=== PATIENT | female | born 1955 | race Caucasian/White ===

== ENCOUNTER 2022-02-23 09:48 | Inpatient (IN) | payer MEDICARE ==
[~2022-02-23] VITALS: Ht 165.1 cm; Wt 70.3 kg
[2022-02-23] MEDS ORDERED: NA P133E RC (11:29)
[2022-02-23] MEDS ORDERED: ACET325T53 PO (11:29)
[2022-02-23] MEDS ORDERED: MELA5TAB PO (11:29)
[2022-02-23] MEDS ORDERED: MAGN400O6 PO (11:29)
[2022-02-23] MEDS ORDERED: AMLO5TAB4 PO (11:29)
[2022-02-23] MEDS ORDERED: DIVA500T2 PO (11:29)
[2022-02-23] MEDS ORDERED: BISA10SU11 RC (11:29)
[2022-02-23] MEDS ORDERED: LISI10TA29 PO (11:29)
[2022-02-23 11:30] LABS: BASOPHILS % (AUTO) 0.7 % (0.0-2.0); EOSINOPHILS % (AUTO) 2.3 % (0.0-6.0); HEMATOCRIT 39 % (33-45); HEMOGLOBIN 12.9 g/dL (11.5-14.8); LYMPHOCYTES # (AUTO) 1.3 K/uL (0.8-4.8); LYMPHOCYTES % (AUTO) 17.9 % (20.0-44.0); MEAN CORPUSCULAR HGB CONC 33 g/dl (31.0-36.0); MEAN CORPUSCULAR VOLUME 93 fL (82-100); MONOCYTES # (AUTO) 0.8 K/uL (0.1-1.30); MONOCYTES % (AUTO) 11.2 % (2.0-12.0); NEUTROPHILS # (AUTO) 4.8 K/uL (1.8-8.9); NEUTROPHILS % (AUTO) 67.9 % (43.0-81.0); PLATELET COUNT (AUTO) 226 K/uL (150-450); RED BLOOD CELL COUNT(AUTO) 4.22 MIL/uL (4.0-5.2)
[2022-02-23 11:38] LABS: BILIRUBIN,URINE NEGATIVE (NEGATIVE); COLOR,URINE YELLOW (YELLOW); LEUKOCYTE ESTERASE ,URINE MODERATE (NEGATIVE); NITRITE, URINE POSITIVE (NEGATIVE); PROTEIN,URINE NEGATIVE (NEGATIVE); UGLUCOSE NEGATIVE (NEGATIVE); UROBILINOGEN,URINE 0.2 EU/dL (0.2)
[2022-02-23 11:47] LABS: ALANINE AMINOTRANSFERASE 18 U/L (12-78); ALBUMIN 3.5 g/dL (3.4-5.0); ALKALINE PHOSPHATASE 69 U/L (46-116); ASPARTATE AMINOTRANSFERASE 12 U/L (15-37); BILIRUBIN,DIRECT 0.1 mg/dL (0.0-0.2); BILIRUBIN,TOTAL 0.6 mg/dL (0.2-1.0); CALCIUM, SERUM 9.3 mg/dL (8.5-10.1); CARBON DIOXIDE 28 mmol/L (21-32); CHLORIDE 102 mmol/L (98-107); CREATININE 1.6 mg/dL (0.6-1.3); GLUCOSE 85 mg/dL (74-106); SODIUM SERUM 135 mmol/L (136-145); TOTAL PROTEIN, SERUM 7.6 g/dL (6.4-8.2); UREA NITROGEN, BLOOD 40 mg/dL (7-18)
[2022-02-23 11:51] LABS: ACETAMINOPHEN 0 ug/ml (10-30); ALCOHOL, BLOOD < 3 mg/dL (0-0)
[2022-02-23 13:25] LABS: BACTERIA,URINE Many /HPF (None Seen); SQUAMOUS EPITHELIAL CELL,UR Moderate /HPF (None Seen); WBC,URINE 81-100 /HPF (0-3)
[2022-02-23] MEDS ORDERED: MAG HYDROX/AL HYDROX/SIMETH 30 ML UDC PO PRN (22:00)
[2022-02-23] MEDS ORDERED: LORAZEPAM 0.5 MG TABLET PO PRN (22:00)
[2022-02-23] MEDS ORDERED: MAGNESIUM HYDROXIDE 30 ML UDC PO PRN (22:00)
[2022-02-23] MEDS ORDERED: ACETAMINOPHEN 325 MG TABLET PO PRN (22:00)
[2022-02-23 22:14] VITALS: BP 155/90
[2022-02-23] MEDS ORDERED: BLOOD SUGAR DIAGNOSTIC 1 EACH STRIP IN ONE (22:30)
[2022-02-24 00:25] VITALS: BP 135/72
[2022-02-24] MEDS ORDERED: Z GUARD REMEDY 4 OZ OINT TP PRN (01:30)
[2022-02-24 08:00] VITALS: BP 116/66
[2022-02-24] MEDS: AMLODIPINE BESYLATE 5 MG TABLET PO SCH (08:42)
[2022-02-24] MEDS: SULFAMETH/TRIMETH 800/160 MG 1 UDTAB TABLET PO SCH ×2 (08:42→16:39)
[2022-02-24] MEDS: LISINOPRIL (10MG) 10 MG TABLET PO SCH (08:43)
[2022-02-24] MEDS: NICOTINE PATCH (14MG) 14 MG PATCH.TD24 TD SCH (08:53)
[2022-02-24] MEDS ORDERED: DIVALPROEX SODIUM 500 MG TABLET.DR PO SCH (09:00)
[2022-02-24] MEDS: Z GUARD REMEDY 4 OZ OINT TP SCH (09:08)
[2022-02-24 16:00] VITALS: BP 140/87
[2022-02-24 19:49] VITALS: BP 123/63
[2022-02-24 20:28] VITALS: BP 123/63
[2022-02-24] MEDS ORDERED: DIVALPROEX SODIUM 125 MG CAP.SPRINK PO SCH (21:00)
[2022-02-24] MEDS ORDERED: MELATONIN 3 MG TABLET PO SCH (22:00)
[2022-02-25 07:09] LABS: CALCIUM, SERUM 8.9 mg/dL (8.5-10.1); CREATININE 1.9 mg/dL (0.6-1.3); POTASSIUM 4.8 mmol/L (3.5-5.1)
[2022-02-25 07:19] LABS: BASOPHILS # (AUTO) 0.1 K/uL (0.0-0.2); EOSINOPHILS % (AUTO) 2.7 % (0.0-6.0); HEMATOCRIT 38 % (33-45); HEMOGLOBIN 12.5 g/dL (11.5-14.8); LYMPHOCYTES # (AUTO) 1.3 K/uL (0.8-4.8); LYMPHOCYTES % (AUTO) 20.9 % (20.0-44.0); MEAN CORPUSCULAR HGB CONC 33 g/dl (31.0-36.0); MEAN CORPUSCULAR VOLUME 92 fL (82-100); MONOCYTES # (AUTO) 0.8 K/uL (0.1-1.30); MONOCYTES % (AUTO) 13.6 % (2.0-12.0); NEUTROPHILS # (AUTO) 3.8 K/uL (1.8-8.9); NEUTROPHILS % (AUTO) 61.8 % (43.0-81.0); PLATELET COUNT (AUTO) 200 K/uL (150-450); RED BLOOD CELL COUNT(AUTO) 4.13 MIL/uL (4.0-5.2); WHITE BLOOD COUNT (AUTO) 6.2 K/uL (4.3-11.0)
[2022-02-25 08:00] VITALS: BP 137/67
[2022-02-25] MEDS: AMLODIPINE BESYLATE 5 MG TABLET PO SCH (09:04)
[2022-02-25] MEDS: NICOTINE PATCH (14MG) 14 MG PATCH.TD24 TD SCH ×2 (09:04→09:15)
[2022-02-25] MEDS: SULFAMETH/TRIMETH 800/160 MG 1 UDTAB TABLET PO SCH ×2 (09:04→16:37)
[2022-02-25] MEDS: OLANZAPINE 5 MG TABLET PO SCH (09:04)
[2022-02-25] MEDS: LISINOPRIL (10MG) 10 MG TABLET PO SCH (09:05)
[2022-02-25] MEDS: Z GUARD REMEDY 4 OZ OINT TP SCH (09:06)
[2022-02-25 16:00] VITALS: BP 118/76
[2022-02-25 20:23] VITALS: BP 128/78
[2022-02-25] MEDS: TEMAZEPAM 7.5 MG CAPSULE PO PRN (22:37)
[2022-02-26 08:00] VITALS: BP 134/74
[2022-02-26] MEDS: LISINOPRIL (10MG) 10 MG TABLET PO SCH (08:21)
[2022-02-26] MEDS: SULFAMETH/TRIMETH 800/160 MG 1 UDTAB TABLET PO SCH (08:21)
[2022-02-26] MEDS: OLANZAPINE 5 MG TABLET PO SCH (08:21)
[2022-02-26] MEDS: AMLODIPINE BESYLATE 5 MG TABLET PO SCH (08:22)
[2022-02-26] MEDS: Z GUARD REMEDY 4 OZ OINT TP SCH (08:22)
[2022-02-26 16:00] VITALS: BP 103/65
[2022-02-26 20:31] VITALS: BP 105/66
[2022-02-26] MEDS: NITROFURANTOIN/MONOHYDRATE MACROCRYSTALS 100 MG CAPSULE PO SCH (21:04)
[2022-02-26] MEDS: TEMAZEPAM 7.5 MG CAPSULE PO PRN (22:54)
[2022-02-27 08:00] VITALS: BP 125/66
[2022-02-27] MEDS: OLANZAPINE 5 MG TABLET PO SCH (10:10)
[2022-02-27] MEDS: AMLODIPINE BESYLATE 5 MG TABLET PO SCH (10:10)
[2022-02-27] MEDS: LISINOPRIL (10MG) 10 MG TABLET PO SCH (10:11)
[2022-02-27] MEDS: NITROFURANTOIN/MONOHYDRATE MACROCRYSTALS 100 MG CAPSULE PO SCH ×2 (10:11→21:22)
[2022-02-27] MEDS: Z GUARD REMEDY 4 OZ OINT TP SCH (10:13)
[2022-02-27] MEDS: NICOTINE PATCH (14MG) 14 MG PATCH.TD24 TD SCH (10:23)
[2022-02-27 16:00] VITALS: BP 154/89
[2022-02-27 20:00] VITALS: BP 98/60
[2022-02-28] MEDS: TEMAZEPAM 7.5 MG CAPSULE PO PRN ×2 (01:21→21:34)
[2022-02-28 08:00] VITALS: BP 106/58
[2022-02-28] MEDS: NICOTINE PATCH (14MG) 14 MG PATCH.TD24 TD SCH (08:20)
[2022-02-28] MEDS: AMLODIPINE BESYLATE 5 MG TABLET PO SCH (08:21)
[2022-02-28] MEDS: NITROFURANTOIN/MONOHYDRATE MACROCRYSTALS 100 MG CAPSULE PO SCH ×2 (08:22→21:34)
[2022-02-28] MEDS: LISINOPRIL (10MG) 10 MG TABLET PO SCH (08:22)
[2022-02-28] MEDS: Z GUARD REMEDY 4 OZ OINT TP SCH (08:44)
[2022-02-28] MEDS: OLANZAPINE 2.5 MG TABLET PO SCH (08:45)
[2022-02-28 13:26] LABS: CALCIUM, SERUM 9.4 mg/dL (8.5-10.1); CREATININE 2.2 mg/dL (0.6-1.3); POTASSIUM 4.6 mmol/L (3.5-5.1)
[2022-02-28 16:00] VITALS: BP 125/81
[2022-02-28 20:00] VITALS: BP 117/93
[2022-03-01 07:31] LABS: CALCIUM, SERUM 9.1 mg/dL (8.5-10.1); CREATININE 1.8 mg/dL (0.6-1.3); POTASSIUM 4.4 mmol/L (3.5-5.1)
[2022-03-01 08:00] VITALS: BP 132/73
[2022-03-01] MEDS: NITROFURANTOIN/MONOHYDRATE MACROCRYSTALS 100 MG CAPSULE PO SCH ×2 (08:21→21:17)
[2022-03-01] MEDS: AMLODIPINE BESYLATE 5 MG TABLET PO SCH (08:21)
[2022-03-01] MEDS: OLANZAPINE 2.5 MG TABLET PO SCH (08:21)
[2022-03-01] MEDS: LISINOPRIL (10MG) 10 MG TABLET PO SCH (08:22)
[2022-03-01] MEDS: Z GUARD REMEDY 4 OZ OINT TP SCH (08:25)
[2022-03-01] MEDS: NICOTINE PATCH (14MG) 14 MG PATCH.TD24 TD SCH (09:00)
[2022-03-01 16:00] VITALS: BP 121/75
[2022-03-01 20:00] VITALS: BP 111/76
[2022-03-01] MEDS: TEMAZEPAM 7.5 MG CAPSULE PO PRN (21:17)
[2022-03-02 08:00] VITALS: BP 124/75
[2022-03-02] MEDS: NITROFURANTOIN/MONOHYDRATE MACROCRYSTALS 100 MG CAPSULE PO SCH (08:03)
[2022-03-02] MEDS: OLANZAPINE 2.5 MG TABLET PO SCH (08:05)
[2022-03-02 08:06] VITALS: BP 124/75
[2022-03-02] MEDS: NICOTINE PATCH (14MG) 14 MG PATCH.TD24 TD SCH (08:06)
[2022-03-02] MEDS: LISINOPRIL (10MG) 10 MG TABLET PO SCH (08:06)
[2022-03-02] MEDS: AMLODIPINE BESYLATE 5 MG TABLET PO SCH (08:06)
[2022-03-02] MEDS: Z GUARD REMEDY 4 OZ OINT TP SCH (08:12)
== END 2022-03-02 14:45 | DRG 884 ==
LOC: ER 09:53 → GPS 19:59
PROVIDERS: ADMIT Nurse Practitioner Psychiatric/Mental Health; ATTEND Student in an Organized Health Care Education/Training Program
DX: R45.1 Restlessness and agitation (principal); N17.0 Acute kidney failure with tubular necrosis; N18.9 Chronic kidney disease, unspecified; N39.0 Urinary tract infection, site not specified; F32.A Depression, unspecified; G47.00 Insomnia, unspecified; Z63.4 Disappearance and death of family member; Z86.73 Personal history of transient ischemic attack (TIA), and cerebral infarction without residual deficits; Z91.19 Patient's noncompliance with other medical treatment and regimen; I12.9 Hypertensive chronic kidney disease with stage 1 through stage 4 chronic kidney disease, or unspecified chronic kidney disease
CPT/HCPCS: 36415; 76770-TC; 80048-TC; 80061-TC; 80076-TC; 80164-TC; 81001; 82962-TC; 84443-TC; 85025-TC; 87081-TC; 87086-TC; 87186-TC; 97112-TC; 97116-TC; 97530-TC; C9803; G0480

== ENCOUNTER 2023-07-17 10:24 | Emergency (ER) | payer MEDICARE, OTHER ==
[~2023-07-17] VITALS: Ht 167.6 cm; Wt 84.8 kg
[~2023-07-17 10:24] MED LIST: ACET325T53 PO; AMLO5TAB4 PO; ASPI-1169 PO; ATOR40TA PO; BISA10SU11 RC; FAMO20TA8 PO; LISI10TA29 PO; MAGN400O6 PO; MERO1PIG IV; NA P133E RC
[2023-07-17 10:28] VITALS: BP 142/84; TEMP 98; O2SAT 98
[2023-07-17] MEDS ORDERED: oxyCODONE/APAP (5/325 MG) 1 UDTAB TABLET ONE (11:14)
[2023-07-17] MEDS ORDERED: oxyCODONE/APAP (5/325 MG) 1 UDTAB TABLET PO ONE (11:30)
== END 2023-07-17 13:33 ==
LOC: ER 10:25
DX: M79.601 Pain in right arm (principal); I12.0 Hypertensive chronic kidney disease with stage 5 chronic kidney disease or end stage renal disease; N18.9 Chronic kidney disease, unspecified; Z86.73 Personal history of transient ischemic attack (TIA), and cerebral infarction without residual deficits; Z79.899 Other long term (current) drug therapy; Z79.82 Long term (current) use of aspirin

== ENCOUNTER 2023-10-30 08:04 | Inpatient (IN) | payer MEDICARE, OTHER ==
[~2023-10-30] VITALS: Ht 170.2 cm; Wt 88.9 kg
[2023-10-30 08:51] LABS: BASOPHILS % (AUTO) 0.4 % (0.0-2.0); EOSINOPHILS # (AUTO) 0.2 K/uL (0.0-0.7); EOSINOPHILS % (AUTO) 3.1 % (0.0-6.0); HEMATOCRIT 42 % (33-45); HEMOGLOBIN 13.6 g/dL (11.5-14.8); LYMPHOCYTES % (AUTO) 13.7 % (20.0-44.0); MEAN CORPUSCULAR HEMOGLOBIN 30 PG (26.0-33.0); MEAN CORPUSCULAR HGB CONC 32 g/dl (31.0-36.0); MEAN CORPUSCULAR VOLUME 93 fL (82-100); MONOCYTES # (AUTO) 0.6 K/uL (0.1-1.30); NEUTROPHILS # (AUTO) 5.3 K/uL (1.8-8.9); NEUTROPHILS % (AUTO) 73.8 % (43.0-81.0); PLATELET COUNT (AUTO) 224 K/uL (150-450); RED BLOOD CELL COUNT(AUTO) 4.56 MIL/uL (4.0-5.2); RED CELL DISTRIBUTION WIDTH 14.5 % (11.5-15.0); WHITE BLOOD COUNT (AUTO) 7.2 K/uL (4.3-11.0)
[2023-10-30 09:00] LABS: CARBON DIOXIDE 23 mmol/L (21-32); CHLORIDE 104 mmol/L (98-107); CREATININE 1.9 mg/dL (0.6-1.3); GLUCOSE 129 mg/dL (74-106); POTASSIUM 4.2 mmol/L (3.5-5.1); SODIUM SERUM 136 mmol/L (136-145); UREA NITROGEN, BLOOD 36 mg/dL (7-18)
[2023-10-30 09:07] LABS: ALANINE AMINOTRANSFERASE 24 U/L (12-78); ALBUMIN 3.4 g/dL (3.4-5.0); ALKALINE PHOSPHATASE 111 U/L (46-116); ASPARTATE AMINOTRANSFERASE 29 U/L (15-37); BILIRUBIN,DIRECT 0.1 mg/dL (0.0-0.2); BILIRUBIN,TOTAL 0.7 mg/dL (0.2-1.0)
[2023-10-30 09:14] LABS: INR 0.97 (0.91-1.10); PROTHROMBIN TIME 10.3 SECS (9.2-11.1)
[2023-10-30 09:20] LABS: CHOLESTEROL 183 mg/dL (<200); HDL CHOLESTEROL 54 mg/dL (40-60); LDL 105 mg/dL (0-99); TRIGLYCERIDES 71 mg/dL (30-150)
[2023-10-30 10:17] LABS: APPEARANCE,URINE CLOUDY (CLEAR); BILIRUBIN,URINE NEGATIVE (NEGATIVE); BLOOD, URINE TRACE-INTA Ery/uL (NEGATIVE); COLOR,URINE YELLOW (YELLOW); KETONES,URINE NEGATIVE (NEGATIVE); LEUKOCYTE ESTERASE ,URINE 3+ (NEGATIVE); NITRITE, URINE POSITIVE (NEGATIVE); PH,URINE 5.5 (5.0-8.0); PROTEIN,URINE NEGATIVE (NEGATIVE); UGLUCOSE NEGATIVE (NEGATIVE); UROBILINOGEN,URINE 0.2 EU/dL (0.2)
[2023-10-30 10:25] LABS: AMPHETAMINE, URINE NEGATIVE (NEGATIVE); BARBITURATE, URINE NEGATIVE (NEGATIVE); BENZODIAZEPINE, URINE NEGATIVE (NEGATIVE); CANNABINOID, URINE NEGATIVE (NEGATIVE); COCCAINE, URINE NEGATIVE (NEGATIVE); OPIATE, URINE NEGATIVE (NEGATIVE); PHENCYCLIDINE SCREEN,URINE NEGATIVE (NEGATIVE)
[2023-10-30] MEDS ORDERED: AMLODIPINE BESYLATE 5 MG TABLET ONE (10:29)
[2023-10-30] MEDS ORDERED: ATORVASTATIN 40 MG TABLET ONE (10:29)
[2023-10-30] MEDS ORDERED: LISINOPRIL (20MG) 20 MG TABLET ONE (10:29)
[2023-10-30] MEDS ORDERED: FAMOTIDINE (20 MG) 20 MG TABLET ONE (10:29)
[2023-10-30] MEDS ORDERED: ASPIRIN 81 MG TAB.CHEW ONE (10:30)
[2023-10-30] MEDS: ATORVASTATIN 40 MG TABLET PO SCH (10:38)
[2023-10-30] MEDS: FAMOTIDINE (20 MG) 20 MG TABLET PO SCH (10:38)
[2023-10-30 10:39] LABS: ADD URINE CULTURE YES; BACTERIA,URINE Many /HPF (None Seen); RBC,URINE 0-2 /HPF (0-2); SQUAMOUS EPITHELIAL CELL,UR Rare /HPF (None Seen); WBC,URINE 51-80 /HPF (0-3)
[2023-10-30] MEDS: AMLODIPINE BESYLATE 5 MG TABLET PO SCH (10:39)
[2023-10-30] MEDS: LISINOPRIL (10MG) 10 MG TABLET PO SCH (10:41)
[2023-10-30] MEDS ORDERED: CEFTRIAXONE 1GM BAG (ER ONLY) 1 GM/50 ML PIGGYBACK IV ONE (11:30)
[2023-10-30] MEDS ORDERED: CEFTRIAXONE 1GM BAG (ER ONLY) 50 ML IV ONE ×2 (11:35→19:22)
[2023-10-30] MEDS ORDERED: IOHEXOL-350 100 ML VIAL IV ONE (11:38)
[2023-10-30] MEDS ORDERED: CT SWABBABLE VALVE TRANS SET 1 EA INFUS.SET MC ONE (11:38)
[2023-10-30] MEDS ORDERED: IV NS 0.9% 250 ML IV ONE (11:38)
[2023-10-30] MEDS: BLOOD SUGAR DIAGNOSTIC 1 EACH STRIP IN SCH ×3 (12:15→22:00)
[2023-10-30] MEDS ORDERED: CLON1TAB12 PO (15:21)
[2023-10-30] MEDS ORDERED: ARIP20TA4 PO (15:21)
[2023-10-30] MEDS ORDERED: BUSP10TA3 PO (15:21)
[2023-10-30] MEDS ORDERED: QUET25TA PO (15:21)
[2023-10-30] MEDS ORDERED: LISI10TA29 PO (15:21)
[2023-10-30] MEDS ORDERED: AMLO5TAB4 PO (15:21)
[2023-10-30] MEDS: IV NS 0.9% 1,000 ML IV PRN (16:27)
[2023-10-30] MEDS: CEFTRIAXONE 1 G in IV D5W 50 ML IV SCH (19:25)
[2023-10-30] MEDS ORDERED: SIMVASTATIN 40 MG TABLET PO SCH (22:00)
[2023-10-30 23:25] VITALS: BP 128/82; TEMP 97.9; O2SAT 96
[2023-10-30 23:30] VITALS: BP 128/82; TEMP 97.9; O2SAT 96
[2023-10-31 04:00] VITALS: BP 145/88; TEMP 97.7; O2SAT 96
[2023-10-31] MEDS: IV NS 0.9% 1,000 ML IV PRN ×2 (04:33→19:16)
[2023-10-31] MEDS: BLOOD SUGAR DIAGNOSTIC 1 EACH STRIP IN SCH ×4 (06:40→22:00)
[2023-10-31 08:00] VITALS: BP 108/61; TEMP 98.6; O2SAT 98
[2023-10-31] MEDS: FAMOTIDINE (20 MG) 20 MG TABLET PO SCH ×2 (08:24→18:30)
[2023-10-31] MEDS ORDERED: ASPIRIN 81 MG TAB.CHEW PO SCH (09:00)
[2023-10-31 09:29] LABS: BASOPHILS # (AUTO) 0.1 K/uL (0.0-0.2); BASOPHILS % (AUTO) 1.6 % (0.0-2.0); EOSINOPHILS # (AUTO) 0.2 K/uL (0.0-0.7); EOSINOPHILS % (AUTO) 2.8 % (0.0-6.0); HEMATOCRIT 38 % (33-45); HEMOGLOBIN 12.4 g/dL (11.5-14.8); LYMPHOCYTES # (AUTO) 1.1 K/uL (0.8-4.8); LYMPHOCYTES % (AUTO) 16.9 % (20.0-44.0); MEAN CORPUSCULAR HEMOGLOBIN 30 PG (26.0-33.0); MEAN CORPUSCULAR HGB CONC 33 g/dl (31.0-36.0); MEAN CORPUSCULAR VOLUME 92 fL (82-100); MONOCYTES # (AUTO) 0.6 K/uL (0.1-1.30); MONOCYTES % (AUTO) 9.2 % (2.0-12.0); NEUTROPHILS # (AUTO) 4.6 K/uL (1.8-8.9); NEUTROPHILS % (AUTO) 69.5 % (43.0-81.0); PLATELET COUNT (AUTO) 180 K/uL (150-450); RED BLOOD CELL COUNT(AUTO) 4.14 MIL/uL (4.0-5.2); RED CELL DISTRIBUTION WIDTH 14.4 % (11.5-15.0); WHITE BLOOD COUNT (AUTO) 6.6 K/uL (4.3-11.0)
[2023-10-31 09:43] LABS: INR 0.96 (0.91-1.10); PARTIAL THROMBOPLASTIN TIME 26.3 SEC (24.3-34.3); PROTHROMBIN TIME 10.2 SECS (9.2-11.1)
[2023-10-31 09:48] LABS: CALCIUM, SERUM 9.1 mg/dL (8.5-10.1); CREATININE 1.7 mg/dL (0.6-1.3); POTASSIUM 4.2 mmol/L (3.5-5.1)
[2023-10-31 12:00] VITALS: BP 112/66; TEMP 98.4; O2SAT 98
[2023-10-31 16:00] VITALS: BP 116/83; TEMP 99.3; O2SAT 96
[2023-10-31] MEDS: CEFTRIAXONE 1 G in IV D5W 50 ML IV SCH (18:30)
[2023-10-31 20:00] VITALS: BP 165/90; TEMP 98.6; O2SAT 96
[2023-10-31] MEDS: ATORVASTATIN 40 MG TABLET PO SCH (21:12)
[2023-10-31] MEDS ORDERED: HYDROCODONE/APAP 5/325MG TABLET PO PRN (23:00)
[2023-11-01] VITALS: BP 150/87; TEMP 98.4; TEMP 98.7; O2SAT 94; O2SAT 97
[2023-11-01] MEDS: IV NS 0.9% 1,000 ML IV PRN (03:55)
[2023-11-01 04:00] VITALS: BP 145/87; TEMP 98.2; O2SAT 96
[2023-11-01] MEDS: BLOOD SUGAR DIAGNOSTIC 1 EACH STRIP IN SCH ×4 (06:39→21:28)
[2023-11-01 06:44] LABS: BASOPHILS % (AUTO) 0.6 % (0.0-2.0); EOSINOPHILS # (AUTO) 0.2 K/uL (0.0-0.7); HEMATOCRIT 35 % (33-45); HEMOGLOBIN 11.4 g/dL (11.5-14.8); LYMPHOCYTES # (AUTO) 1.8 K/uL (0.8-4.8); LYMPHOCYTES % (AUTO) 23.9 % (20.0-44.0); MEAN CORPUSCULAR HEMOGLOBIN 30 PG (26.0-33.0); MEAN CORPUSCULAR HGB CONC 33 g/dl (31.0-36.0); MEAN CORPUSCULAR VOLUME 92 fL (82-100); MONOCYTES # (AUTO) 0.9 K/uL (0.1-1.30); MONOCYTES % (AUTO) 11.7 % (2.0-12.0); NEUTROPHILS # (AUTO) 4.7 K/uL (1.8-8.9); NEUTROPHILS % (AUTO) 60.8 % (43.0-81.0); PLATELET COUNT (AUTO) 175 K/uL (150-450); RED BLOOD CELL COUNT(AUTO) 3.79 MIL/uL (4.0-5.2); RED CELL DISTRIBUTION WIDTH 14.1 % (11.5-15.0); WHITE BLOOD COUNT (AUTO) 7.7 K/uL (4.3-11.0)
[2023-11-01 06:53] LABS: CALCIUM, SERUM 9.2 mg/dL (8.5-10.1); CREATININE 1.6 mg/dL (0.6-1.3); POTASSIUM 4.2 mmol/L (3.5-5.1)
[2023-11-01 08:26] VITALS: BP 150/56; TEMP 98; O2SAT 96
[2023-11-01] MEDS: ASPIRIN 81 MG TAB.CHEW PO SCH (10:41)
[2023-11-01] MEDS: FAMOTIDINE (20 MG) 20 MG TABLET PO SCH ×2 (10:41→17:00)
[2023-11-01] MEDS: CLOPIDOGREL BISULFATE 75 MG TABLET PO SCH (10:41)
[2023-11-01] MEDS: AMLODIPINE BESYLATE 5 MG TABLET PO SCH (10:42)
[2023-11-01] MEDS: LISINOPRIL (10MG) 10 MG TABLET PO SCH (10:42)
[2023-11-01 12:00] VITALS: BP 151/79; TEMP 98.1; O2SAT 96
[2023-11-01 15:53] VITALS: BP 143/86; TEMP 98.2; O2SAT 94
[2023-11-01] MEDS: CEFTRIAXONE 1 G in IV D5W 50 ML IV SCH (19:05)
[2023-11-01 20:00] VITALS: BP 151/67; TEMP 98.8; O2SAT 95
[2023-11-01] MEDS ORDERED: ONDANSETRON HCL/PF 4 MG/2 ML VIAL IV PRN ×2 (20:30→21:00)
[2023-11-01] MEDS: ATORVASTATIN 40 MG TABLET PO SCH (21:28)
[2023-11-01] MEDS: TEMAZEPAM 7.5 MG CAPSULE PO PRN (22:23)
[2023-11-02] VITALS: BP 158/95; TEMP 99; O2SAT 94
[2023-11-02 04:00] VITALS: BP 132/85; TEMP 98.4; O2SAT 96
[2023-11-02] MEDS: IV NS 0.9% 1,000 ML IV PRN (04:05)
[2023-11-02] MEDS: BLOOD SUGAR DIAGNOSTIC 1 EACH STRIP IN SCH ×4 (06:27→21:54)
[2023-11-02 07:17] LABS: BASOPHILS % (AUTO) 0.4 % (0.0-2.0); EOSINOPHILS # (AUTO) 0.2 K/uL (0.0-0.7); HEMATOCRIT 36 % (33-45); LYMPHOCYTES # (AUTO) 1.4 K/uL (0.8-4.8); LYMPHOCYTES % (AUTO) 15.7 % (20.0-44.0); MEAN CORPUSCULAR HEMOGLOBIN 30 PG (26.0-33.0); MEAN CORPUSCULAR HGB CONC 33 g/dl (31.0-36.0); MEAN CORPUSCULAR VOLUME 90 fL (82-100); MONOCYTES # (AUTO) 0.8 K/uL (0.1-1.30); MONOCYTES % (AUTO) 9.4 % (2.0-12.0); NEUTROPHILS # (AUTO) 6.4 K/uL (1.8-8.9); NEUTROPHILS % (AUTO) 72.5 % (43.0-81.0); PLATELET COUNT (AUTO) 190 K/uL (150-450); RED BLOOD CELL COUNT(AUTO) 4.03 MIL/uL (4.0-5.2); RED CELL DISTRIBUTION WIDTH 13.8 % (11.5-15.0); WHITE BLOOD COUNT (AUTO) 8.8 K/uL (4.3-11.0)
[2023-11-02 07:46] LABS: CALCIUM, SERUM 9.4 mg/dL (8.5-10.1); CREATININE 1.6 mg/dL (0.6-1.3); POTASSIUM 4.3 mmol/L (3.5-5.1)
[2023-11-02 08:00] VITALS: BP 147/91; TEMP 98.6; O2SAT 98
[2023-11-02] MEDS: ASPIRIN 81 MG TAB.CHEW PO SCH (08:18)
[2023-11-02] MEDS: FAMOTIDINE (20 MG) 20 MG TABLET PO SCH ×2 (08:19→16:59)
[2023-11-02] MEDS: LISINOPRIL (10MG) 10 MG TABLET PO SCH (08:19)
[2023-11-02] MEDS: AMLODIPINE BESYLATE 5 MG TABLET PO SCH (08:19)
[2023-11-02] MEDS: CLOPIDOGREL BISULFATE 75 MG TABLET PO SCH (08:19)
[2023-11-02 12:00] VITALS: BP 131/74; TEMP 99.1; O2SAT 98
[2023-11-02 16:00] VITALS: BP 132/79; TEMP 99.1; O2SAT 94
[2023-11-02] MEDS: CEFTRIAXONE 1 G in IV D5W 50 ML IV SCH (17:57)
[2023-11-02 20:00] VITALS: BP 146/81; TEMP 99.2; O2SAT 95
[2023-11-02] MEDS: ATORVASTATIN 40 MG TABLET PO SCH (21:14)
[2023-11-02] MEDS: TEMAZEPAM 7.5 MG CAPSULE PO PRN (21:26)
[2023-11-03] VITALS: BP 144/81; TEMP 98.8; O2SAT 95
[2023-11-03] MEDS: IV NS 0.9% 1,000 ML IV PRN (04:48)
[2023-11-03] MEDS: BLOOD SUGAR DIAGNOSTIC 1 EACH STRIP IN SCH ×2 (06:33→11:41)
[2023-11-03 07:51] LABS: BASOPHILS % (AUTO) 0.5 % (0.0-2.0); EOSINOPHILS # (AUTO) 0.3 K/uL (0.0-0.7); EOSINOPHILS % (AUTO) 3.5 % (0.0-6.0); HEMATOCRIT 36 % (33-45); HEMOGLOBIN 11.9 g/dL (11.5-14.8); LYMPHOCYTES # (AUTO) 1.4 K/uL (0.8-4.8); LYMPHOCYTES % (AUTO) 18.8 % (20.0-44.0); MEAN CORPUSCULAR HEMOGLOBIN 30 PG (26.0-33.0); MEAN CORPUSCULAR HGB CONC 33 g/dl (31.0-36.0); MEAN CORPUSCULAR VOLUME 91 fL (82-100); MONOCYTES # (AUTO) 0.9 K/uL (0.1-1.30); MONOCYTES % (AUTO) 12.1 % (2.0-12.0); NEUTROPHILS # (AUTO) 4.8 K/uL (1.8-8.9); NEUTROPHILS % (AUTO) 65.1 % (43.0-81.0); PLATELET COUNT (AUTO) 181 K/uL (150-450); RED BLOOD CELL COUNT(AUTO) 3.92 MIL/uL (4.0-5.2); RED CELL DISTRIBUTION WIDTH 13.7 % (11.5-15.0); WHITE BLOOD COUNT (AUTO) 7.3 K/uL (4.3-11.0)
[2023-11-03] MEDS: ASPIRIN 81 MG TAB.CHEW PO SCH (08:08)
[2023-11-03] MEDS: AMLODIPINE BESYLATE 5 MG TABLET PO SCH (08:09)
[2023-11-03] MEDS: CLOPIDOGREL BISULFATE 75 MG TABLET PO SCH (08:09)
[2023-11-03] MEDS: FAMOTIDINE (20 MG) 20 MG TABLET PO SCH (08:09)
[2023-11-03] MEDS: LISINOPRIL (10MG) 10 MG TABLET PO SCH (08:09)
[2023-11-03 08:11] LABS: CALCIUM, SERUM 9.2 mg/dL (8.5-10.1); CREATININE 1.6 mg/dL (0.6-1.3); POTASSIUM 4.5 mmol/L (3.5-5.1)
[2023-11-03 08:25] VITALS: BP 114/78; TEMP 98.9; O2SAT 97
[2023-11-03] MEDS ORDERED: CLOP75TA15 PO (09:38)
== END 2023-11-03 13:00 | DRG 689 ==
LOC: ER 08:08 → TRANSITION 15:43 → MED 22:57 → TELE 23:30
PROVIDERS: ADMIT Nurse Practitioner Acute Care; ATTEND Internal Medicine
DX: N39.0 Urinary tract infection, site not specified (principal); N17.0 Acute kidney failure with tubular necrosis; G45.9 Transient cerebral ischemic attack, unspecified; E44.0 Moderate protein-calorie malnutrition; N18.4 Chronic kidney disease, stage 4 (severe); I12.9 Hypertensive chronic kidney disease with stage 1 through stage 4 chronic kidney disease, or unspecified chronic kidney disease; F17.210 Nicotine dependence, cigarettes, uncomplicated; E11.22 Type 2 diabetes mellitus with diabetic chronic kidney disease; D64.9 Anemia, unspecified; E66.9 Obesity, unspecified; E88.09 Other disorders of plasma-protein metabolism, not elsewhere classified; Z79.4 Long term (current) use of insulin; Z86.73 Personal history of transient ischemic attack (TIA), and cerebral infarction without residual deficits; Z20.822 Contact with and (suspected) exposure to COVID-19; R29.701 NIHSS score 1; Z68.30 Body mass index [BMI] 30.0-30.9, adult; Z71.3 Dietary counseling and surveillance; Z71.6 Tobacco abuse counseling; E78.5 Hyperlipidemia, unspecified; R53.1 Weakness; F99 Mental disorder, not otherwise specified; K21.9 Gastro-esophageal reflux disease without esophagitis; M89.8X9 Other specified disorders of bone, unspecified site; Z79.899 Other long term (current) drug therapy; B96.20 Unspecified Escherichia coli [E. coli] as the cause of diseases classified elsewhere
CPT/HCPCS: 36415; 70450-TC; 70496-TC; 70498-TC; 70551-TC; 71045-TC; 80048-TC; 80061-TC; 80076-TC; 81001; 82962-TC; 84484-TC; 85025-TC; 85730-TC; 87040-TC; 87081-TC; 87086-TC; 92526; 92611-TC; 93307-TC; 93880-TC; 97110-TC; 97116-TC; 97530-TC; 97535-TC; A4223; C9803; G0378; J0696; J2405; J7030; J7050; J7060; Q9967